=== PATIENT | female | born 1945 | race African-American/Black ===

== ENCOUNTER 2017-11-30 09:20 | Emergency (ER) | payer MEDICARE, MEDICAID ==
[~2017-11-30] VITALS: Ht 160 cm; Wt 75.0 kg
[~2017-11-30 09:20] MED LIST: AMLO2.5T45 PO; BENA40TA3 PO; PRAV10TA35 PO
[2017-11-30] MEDS ORDERED: ACETAMINOPHEN WITH CODEINE 300/30MG TABLET PO ONE (16:45)
[2017-11-30 17:40] LABS: CLARITY URINE TURBID (CLEAR); COLOR URINE RED (YELLOW); KETONES URINE NEGATIVE (NEGATIVE); LEUKOCYTE ESTERASE URINE 3+ (NEGATIVE); NITRITE URINE POSITIVE (NEGATIVE); OCCULT BLOOD URINE 3+ (NEGATIVE); PROTEIN URINE 3+ (NEGATIVE); SPECIFIC GRAVITY URINE 1.017 (1.005-1.030)
[2017-11-30 18:05] VITALS: BP 137/71
== END 2017-11-30 18:40 | disposition home or self-care (01) ==
LOC: ER 10:16
DX: N39.0 Urinary tract infection, site not specified (principal); I10 Essential (primary) hypertension
CPT/HCPCS: 81001; 87077; 87086; 87186; 99284